=== PATIENT | male | born 1960 | race Caucasian/White ===

== ENCOUNTER 2016-10-09 | Outpatient (CLI) | END 2016-10-09 16:43 | disposition short-term general hospital (02) | CPT/HCPCS: A0425; A0427 ==

== ENCOUNTER 2016-10-09 15:41 | Emergency (ER) | payer OTHER ==
[2016-10-09] MEDS ORDERED: ASPIRIN CHEW 81 MG TABLET ONE (16:05)
[2016-10-09] MEDS ORDERED: HEPARIN 25,000 UNITS/500 ML 500 ML IV ONE (16:15)
[2016-10-09] MEDS ORDERED: NITROGLYCERIN SL 0.4 MG TABLET SL STA (16:16)
[2016-10-09] MEDS ORDERED: HEPARIN 25,000 UNITS/500 ML 500 ML IV STA (16:16)
[2016-10-09] MEDS ORDERED: CLOPIDOGREL 300 MG TABLET PO STA (16:16)
[2016-10-09] MEDS ORDERED: HEPARIN 5,000 UNIT/ML VIAL IVP STA (16:16)
[2016-10-09] MEDS ORDERED: LORazepam 2 MG/ML SYRINGE IVP STA (16:18)
[2016-10-09] MEDS ORDERED: MAGNESIUM SULFATE 2 GRAM 50 ML IV ONE ×2 (16:26→16:28)
[2016-10-09] MEDS ORDERED: AMIODARONE 150 MG/3 ML VIAL IVP STA (16:28)
[2016-10-09] MEDS ORDERED: AMIODARONE 360 MG/200 ML 200 ML IV ONE ×2 (16:29→16:32)
[2016-10-09] MEDS ORDERED: ASPIRIN CHEW 81 MG TABLET PO STA (16:49)
== END 2016-10-09 17:05 | disposition short-term general hospital (02) ==
DX: I21.01 ST elevation (STEMI) myocardial infarction involving left main coronary artery (principal); I49.01 Ventricular fibrillation; R07.2 Precordial pain
CPT/HCPCS: 36415; 80053; 83690; 84484; 85025; 85610; 85730; 93005; 93010; 96365; 96368; 96375; 96376; 99283; 99291; A9270; J0282

== ENCOUNTER 2016-10-26 18:14 | Emergency (ER) | payer OTHER | END 2016-10-26 19:21 | disposition home or self-care (01) | DX: B34.9 Viral infection, unspecified (principal) ==

== ENCOUNTER 2017-06-29 15:47 | Emergency (ER) | payer OTHER ==
[2017-06-29] MEDS ORDERED: PSEUDOEPHEDRINE 30 MG TABLET PO STA (16:43)
[2017-06-29] MEDS ORDERED: OXYMETAZOLINE NASAL SPRAY NAS STA (16:43)
[2017-06-29] MEDS ORDERED: OXYMETAZOLINE NASAL SPRAY NAS ONE (16:52)
[2017-06-29] MEDS ORDERED: PSEUDOEPHEDRINE 30 MG TABLET PO ONE (16:52)
--- NOTE | 2017-06-29 17:08 | ED Physician Documentation ---
History of Present Illness - Stated complaint Stated Complaint: SINUS PRESSURE - Chief complaint Chief Complaint: Heent - Additonal information Additional information: hx from pt 56 male to ER with L frontal and maxillary sinus pressure and a cough that is worse at night and is keeping his up no travel Review of Systems Constitutional: denies: Fever Nose: reports: Congestion, Sinus pressure / pain Respiratory: reports: Cough PD PAST MEDICAL HISTORY - Past Medical History Past Medical History: Yes Cardiovascular: [place] Respiratory: None Neuro: None Endocrine/Autoimmune: None GI: GERD - Past Surgical History Past Surgical History: Yes Cardiovascular: Coronary stent, Angioplasty - Present Medications Home Medications: Ambulatory Orders Medication Instructions Recorded Confirmed Atorvastatin [Lipitor] 40 mg ORAL DAILY 10/26/16 06/29/17 Clopidogrel [Plavix] 75 mg ORAL DAILY 10/26/16 06/29/17 Lisinopril 5 mg ORAL DAILY 10/26/16 06/29/17 Amox/Clav 875/125 [Augmentin] 1 each PO Q12H #20 tablet 06/29/17 Aspirin Chewable [St Quique 81 mg PO DAILY 06/29/17 06/29/17 Aspirin] Oxymetazoline HCl [Afrin] 2 spray NS BID PRN #1 bottle 06/29/17 Pantoprazole [Protonix] 40 mg PO DAILY 06/29/17 06/29/17 Pseudoephedrine [Sudafed] 30 mg PO Q6H PRN #12 tablet 06/29/17 - Allergies Allergies/Adverse Reactions: Allergies Allergy/AdvReac Type Severity Reaction Status Date / Time No Known Drug Allergies Allergy Verified 06/29/17 15:58 - Social History Does the pt smoke?: No Smoking Status: Never smoker Does the pt drink ETOH?: No Does the pt have substance abuse?: No - Immunizations Immunizations are current?: Yes PD ED PE NORMAL - Vitals Vital signs reviewed: Yes - HEENT HEENT: Ears normal, Moist mucous membranes, Pharynx benign, Other (L frontal and maxillary sinus TTP without swelling, nasal congestion) - Neck Neck: Supple, no meningeal sign - Cardiac Cardiac: RRR - Respiratory Respiratory: No respiratory distress, Clear bilaterally - Neuro Neuro: Alert and oriented X 3 Results - Vitals Vitals: Vital Signs - 24 hr 06/29/17 15:55 Temperature 36 C L Heart Rate 100 Respiratory 16 Rate Blood Pressure 114/80 O2 Saturation 93 Oxygen O2 Source Room air - Rads (name of study) CXR Radiology: See rad report (NACPD) Departure - Departure Disposition: 01 Home, Self Care Clinical Impression: Sinusitis Qualifiers: Sinusitis location: unspecified location Chronicity: acute Recurrence: non- recurrent Qualified Code(s): J01.90 - Acute sinusitis, unspecified Condition: Good Instructions: ED Sinusitis No Abx Follow-Up: Marko Hamlin ARNP [Primary Care Provider] - Prescriptions: Oxymetazoline HCl [Afrin] 2 spray NS BID PRN #1 bottle PRN Reason: nasal sinus ear congestion Amox/Clav 875/125 [Augmentin] 1 each PO Q12H #20 tablet Pseudoephedrine [Sudafed] 30 mg PO Q6H PRN #12 tablet PRN Reason: congestion Comments: The xray is fine - no pneumonia. Your cough is likely due to drainage from your sinuses at night Most sinus infections are not bacterial and do not need antibiotics. i recommend you take sudafed every 6 hr and use the afrin spray twice a day for three days. A sinus irrigation system such as a tabitha pot will help too. If you are not better after three days if trying that, then you can take the antibiotic
[2017-06-29 17:34] VITALS: BP 144/78
--- NOTE | 2017-06-29 17:55 | XRAY Preliminary Report ---
Exam: XR Chest 2 View PA/LAT IMPRESSION: Normal 2-view chest radiography. [facility] SITE ID: [id number]
--- NOTE | 2017-06-29 17:58 | XRAY Report ---
EXAM: CHEST RADIOGRAPHY EXAM DATE: 06/29/2017 05:07 PM. CLINICAL HISTORY: Productive cough x2 weeks. COMPARISON: None. TECHNIQUE: 2 views. FINDINGS: Lungs/Pleura: Normal volumes. No focal consolidation or evidence of edema. No pleural effusion or pne umothorax. Mediastinum: Normal cardiomediastinal contour. Other: The bones are unremarkable. IMPRESSION: Normal 2-view chest radiography. [facility] Referring Provider Line: [phone] SITE ID: [id number]
== END 2017-06-29 17:32 | disposition home or self-care (01) ==
LOC: ED 15:47
DX: J01.90 Acute sinusitis, unspecified (principal); I25.2 Old myocardial infarction; K21.9 Gastro-esophageal reflux disease without esophagitis; Z79.82 Long term (current) use of aspirin; Z79.02 Long term (current) use of antithrombotics/antiplatelets
CPT/HCPCS: 71020; 99283; A9270

== ENCOUNTER 2018-01-13 20:39 | Emergency (ER) | payer OTHER ==
[2018-01-13 21:03] LABS: BASOPHILS % (AUTO) 0.5 %; EOSINOPHILS # (AUTO) 0.1 10^3/uL (0.0-0.7); EOSINOPHILS % (AUTO) 0.7 %; HGB - HEMOGLOBIN 14.9 g/dL (14.0-18.0); LYMPHOCYTES # (AUTO) 2.6 10^3/uL (1.5-3.5); LYMPHOCYTES % (AUTO) 30.9 %; MEAN CORPUSCULAR HEMOGLOBIN 29.1 pg (27.0-31.0); MEAN CORPUSCULAR HGB CONC 33.4 g/dL (32.0-36.0); MEAN CORPUSCULAR VOLUME 87.1 fL (80.0-94.0); MEAN PLATELET VOLUME 8.3 fL (7.4-11.4); MONOCYTES # (AUTO) 0.7 10^3/uL (0.0-1.0); MONOCYTES % (AUTO) 8.3 %; NEUTROPHILS # (AUTO) 5.1 10^3/uL (1.5-6.6); NEUTROPHILS % (AUTO) 59.6 %; PLT - PLATELET COUNT 228 10^3/uL (130-450); RED BLOOD COUNT 5.13 10^6/uL (4.70-6.10); RED CELL DISTRIBUTION WIDTH 14.3 % (12.0-15.0); WHITE BLOOD COUNT 8.5 x10^3/uL (4.8-10.8)
[2018-01-13 21:14] LABS: ALBUMIN 4.7 g/dL (3.2-5.5); ALBUMIN/GLOBULIN RATIO 1.5 (1.0-2.2); BILIRUBIN,TOTAL 2.9 mg/dL (0.2-1.0); TOTAL PROTEIN 7.8 g/dL (6.7-8.2)
--- NOTE | 2018-01-13 22:25 | ED Physician Documentation ---
PD HPI CHEST PAIN - Stated complaint Stated Complaint: LEFT SIDE CHEST PX - Chief complaint Chief Complaint: Cardiac - History obtained from History obtained from: Patient - History of Present Illness Timing - onset: How many days ago (2) Timing - details: Intermittant Quality: Pressure, Aching Location: Left chest Worsened by: No: Exertion, Inspiration, Eating, Palpation Recently seen: Not recently seen - Additional information Additional information: Patient is a 57 year old male with a history of a prior CA about 1 year ago who is presenting to the emergency department for left sided chest pain. Patient states that it has been intermittent over the last few days. patient denies any shortness of breath with it and describes it as an ache. Patient denies any aggravating or alleviating factors or exertional component to his pain. Review of Systems Constitutional: denies: Fever, Chills Eyes: reports: Reviewed and negative Ears: reports: Reviewed and negative Nose: denies: Rhinorrhea / runny nose, Congestion Throat: denies: Sore throat Cardiac: reports: Chest pain / pressure. denies: Palpitations, Pedal edema, Calf pain Respiratory: denies: Dyspnea, Cough, Hemoptysis, Wheezing GI: denies: Nausea, Vomiting : reports: Reviewed and negative Skin: reports: Reviewed and negative Musculoskeletal: denies: Extremity pain Neurologic: denies: Generalized weakness, Focal weakness, Headache Immunocompromised: denies: Immunocompromised PD PAST MEDICAL HISTORY - Past Medical History Cardiovascular: [place] Respiratory: None Neuro: None Endocrine/Autoimmune: None GI: GERD - Past Surgical History Past Surgical History: Yes Cardiovascular: Coronary stent, Angioplasty - Present Medications Home Medications: Ambulatory Orders Medication Instructions Recorded Confirmed Atorvastatin [Lipitor] 40 mg ORAL DAILY 10/26/16 06/29/17 Clopidogrel [Plavix] 75 mg ORAL DAILY 10/26/16 06/29/17 Lisinopril 5 mg ORAL DAILY 10/26/16 06/29/17 Amox/Clav 875/125 [Augmentin] 1 each PO Q12H #20 tablet 06/29/17 Aspirin Chewable [St Quique 81 mg PO DAILY 06/29/17 06/29/17 Aspirin] Oxymetazoline HCl [Afrin] 2 spray NS BID PRN #1 bottle 06/29/17 Pantoprazole [Protonix] 40 mg PO DAILY 06/29/17 06/29/17 Pseudoephedrine [Sudafed] 30 mg PO Q6H PRN #12 tablet 06/29/17 - Allergies Allergies/Adverse Reactions: Allergies Allergy/AdvReac Type Severity Reaction Status Date / Time No Known Drug Allergies Allergy Verified 06/29/17 15:58 - Social History Does the pt smoke?: No Smoking Status: Never smoker Does the pt drink ETOH?: No Does the pt have substance abuse?: No - Immunizations Immunizations are current?: Yes PD ED PE NORMAL - Vitals Vital signs reviewed: Yes - General General: Alert and oriented X 3, No acute distress, Well developed/nourished - HEENT HEENT: Atraumatic, Moist mucous membranes - Neck Neck: No JVD - Cardiac Cardiac: RRR - Respiratory Respiratory: No respiratory distress, Clear bilaterally - Abdomen Abdomen: Soft, Non tender, Non distended - Derm Derm: Normal color - Extremities Extremities: No edema, No calf tenderness / cord - Neuro Neuro: Alert and oriented X 3 Eye Opening: Spontaneous Motor: Obeys Commands Verbal: Oriented GCS Score: 15 Results - Vitals Vitals: Vital Signs - 24 hr 01/13/18 01/13/18 20:40 22:31 Temperature 36.4 C L 36.8 C Heart Rate 82 69 Respiratory 18 18 Rate Blood Pressure 121/84 H 112/76 O2 Saturation 99 97 Oxygen O2 Source Room air - EKG (time done) 2046 Rate: Rate (enter#) (81) Rhythm: NSR Chapin: Normal Intervals: Normal PA QRS: Normal Ischemia: Normal ST segments - Labs Labs: Laboratory Tests 01/13/18 01/13/18 01/13/18 20:52 20:52 20:52 WBC 8.5 RBC 5.13 Hgb 14.9 Hct 44.7 MCV 87.1 MCH 29.1 MCHC 33.4 RDW 14.3 Plt Count 228 MPV 8.3 Neut # 5.1 Lymph # 2.6 Jefferson # 0.7 Eos # 0.1 Baso # 0.0 Absolute Nucleated RBC 0.01 Nucleated RBC % 0.1 Sodium 136 Potassium 3.4 L Chloride 101 Carbon Dioxide 28 Anion Gap 7.0 BUN 12 Creatinine 1.0 Estimated GFR (MDRD) 77 L Glucose 108 H Calcium 9.0 Total Bilirubin 2.9 H AST 44 H ALT 31 Alkaline Phosphatase 56 Troponin I < 0.04 Total Protein 7.8 Albumin 4.7 Globulin 3.1 Albumin/Globulin Ratio 1.5 Lipase 10 L PD MEDICAL DECISION MAKING - ED course Complexity details: reviewed old records, reviewed results, re-evaluated patient , considered differential, d/w patient ED course: Patient was seen and examined at bedside. patient was well appearing and in no distress. ekg was performed and was normal sinus. Patient's diagnostics were within normal limits including troponin. chest x-ray was offered but patient declined. Patient had a HEART score of 2. Patient required no further work up and was stable for discharge with outpatient follow up. Departure - Departure Disposition: 01 Home, Self Care Clinical Impression: Atypical chest pain, Chest pain Instructions: ED Chest Pain Atypical Unkn Cause Follow-Up: Marko Hamlin ARNP [Primary Care Provider] - Comments: Your diagnostics today were within normal limits. It is unlikely cardiac in nature but due to your history you should follow up with your doctor. You should follow up with your application software developer for a possible stress test. You may return to the emergency department at any time for new, worsening or uncontrollable symptoms. Discharge Date/Time: 01/13/18 22:33
[2018-01-13 22:32] VITALS: BP 112/76
== END 2018-01-13 22:33 | disposition home or self-care (01) ==
LOC: ED 20:39
DX: R07.89 Other chest pain (principal); I25.2 Old myocardial infarction; Z95.5 Presence of coronary angioplasty implant and graft; Z79.82 Long term (current) use of aspirin
CPT/HCPCS: 36415; 80053; 83690; 84484; 85025; 93005; 99283; 99284

== ENCOUNTER 2019-12-31 19:52 | Emergency (ER) | payer OTHER ==
[2019-12-31] MEDS ORDERED: cephALEXin 250 MG CAPSULE PO STA (20:25)
[2019-12-31] MEDS ORDERED: TETANUS/DIPHTHERIA/PERTUSSIS 0.5 ML SYRINGE IM ONE (20:25)
--- NOTE | 2019-12-31 20:28 | ED Physician Documentation ---
History of Present Illness - Stated complaint Stated Complaint: RT HAND SWELLING - Chief complaint Chief Complaint: Wound - History obtained from History obtained from: Patient - History of Present Illness Timing: How many weeks ago (2) Pain level max: 2 Pain level now: 1 - Additonal information Additional information: Patient is a 59-year-old male who presents the emergency department with redness and swelling to the dorsum of the right hand. He states that he injured this approximately 2 weeks ago While trimming trees. States increasing redness and swelling since that time. No fevers. Worse with movement and better with rest. Unknown last tetanus. He is right-handed Review of Systems Constitutional: denies: Fever, Chills GI: denies: Vomiting, Diarrhea Skin: denies: Rash Musculoskeletal: denies: Neck pain, Back pain Neurologic: denies: Headache PD PAST MEDICAL HISTORY - Past Medical History Past Medical History: Yes Cardiovascular: [place] Respiratory: None Endocrine/Autoimmune: None GI: GERD - Past Surgical History Past Surgical History: Yes Cardiovascular: Coronary stent, Angioplasty - Present Medications Home Medications: Ambulatory Orders Medication Instructions Recorded Confirmed Atorvastatin [Lipitor] 40 mg ORAL DAILY 10/26/16 12/31/19 Clopidogrel [Plavix] 75 mg ORAL DAILY 10/26/16 12/31/19 lisinopriL [Lisinopril] 5 mg ORAL DAILY 10/26/16 12/31/19 Aspirin Chewable [St Quique 81 mg PO DAILY 06/29/17 12/31/19 Aspirin] Oxymetazoline HCl [Afrin] 2 spray NS BID PRN #1 bottle 06/29/17 12/31/19 Pantoprazole [Protonix] 40 mg PO DAILY 06/29/17 12/31/19 Pseudoephedrine [Sudafed] 30 mg PO Q6H PRN #12 tablet 06/29/17 12/31/19 Cephalexin [Keflex] 500 mg PO Q6H #28 capsule 12/31/19 - Allergies Allergies/Adverse Reactions: Allergies Allergy/AdvReac Type Severity Reaction Status Date / Time No Known Drug Allergies Allergy Verified 12/31/19 19:55 - Social History Does the pt smoke?: No Smoking Status: Never smoker Does the pt drink ETOH?: No Does the pt have substance abuse?: No - Immunizations Immunizations are current?: Yes - POLST Patient has POLST: No PD ED PE NORMAL - Vitals Vital signs reviewed: Yes - General General: Alert and oriented X 3, No acute distress - HEENT HEENT: Moist mucous membranes - Derm Derm: Warm and dry - Extremities Extremities: Other (Mild swelling, erythema and warmth to the dorsum of the right hand. No evidence of deep space infection. Full range of motion. No palmar tenderness. No erythematous streaking. Neurovascular intact.) - Neuro Neuro: Alert and oriented X 3 Results - Vitals Vitals: Vital Signs - 24 hr 12/31/19 19:55 Temperature 36.5 C Heart Rate 76 Respiratory 14 Rate Blood Pressure 135/88 H O2 Saturation 96 Oxygen O2 Source Room air PD MEDICAL DECISION MAKING - ED course Complexity details: considered differential, d/w patient ED course: Patient with cellulitis of the right hand. Will place on Keflex. Tetanus updated. Warnings of infection and instructions on wound care given at bedside. Also counseled on how to minimize scarring. Patient counseled regarding signs and symptoms for which I believe and urgent re-evaluation would be necessary. Patient with good understanding of and agreement to plan and is comfortable going home at this time This document was made in part using voice recognition software. While efforts are made to proofread this document, sound alike and grammatical errors may occur. Departure - Departure Disposition: 01 Home, Self Care Clinical Impression: Cellulitis of right hand Condition: Good Instructions: ED Infec Skin Cellulitis Follow-Up: Marko Hamlin ARNP [Primary Care Provider] - Within 1 week Prescriptions: Cephalexin [Keflex] 500 mg PO Q6H #28 capsule Comments: Take all antibiotics until gone. Return if you worsen. Follow-up with your doctor in 3 to 4 days for a wound check. The swelling and redness should be going down within the next 24 to 48 hours.
[2019-12-31 21:26] VITALS: BP 117/87
== END 2019-12-31 20:55 | disposition home or self-care (01) ==
LOC: ED 19:52
DX: L03.113 Cellulitis of right upper limb (principal)
CPT/HCPCS: 90471; 90715; 99283; 99284; A9270

== ENCOUNTER 2021-09-17 11:29 | Emergency (ER) | payer OTHER ==
[2021-09-17 12:07] VITALS: BP 133/96
--- NOTE | 2021-09-17 12:35 | XRAY Report ---
PROCEDURE: Chest 1 View X-Ray INDICATIONS: chest pain TECHNIQUE: One view of the chest was acquired. COMPARISON: None FINDINGS: Surgical changes and devices: None. Lungs and pleura: No pleural effusions or pneumothorax. Lungs are clear. Mediastinum: Mediastinal contours appear normal. Heart size is normal. Bones and chest wall: No suspicious bony lesions. Overlying soft tissues appear unremarkable. IMPRESSION: No acute cardiopulmonary findings Reviewed by: Marco Antonio Macedo MD on 09/17/2021 11:33 AM [facility] [email or web address]] Approved by: Marco Antonio Macedo MD on 09/17/2021 11:33 AM [facility] [[email or web address]] Station ID: [id number]
--- NOTE | 2021-09-17 12:40 | ED Physician Documentation ---
History of Present Illness - Stated complaint Stated Complaint: C+ CONGESTION - Chief complaint Chief Complaint: Resp - Additonal information Additional information: 60-year-old male presents emergency department for evaluation of cough sinus congestion in the setting of COVID-19 infection. He is not vaccinated for COVID-19. He is not interested in monoclonal antibodies however. His biggest concern is that of sinus congestion. He has been taking Sudafed with little relief. Denies any fevers since the infection began. No chest pain no dyspnea no hemoptysis. Review of Systems Constitutional: denies: Chills, Myalgias Eyes: reports: Reviewed and negative Ears: reports: Reviewed and negative Nose: reports: Rhinorrhea / runny nose, Congestion Throat: reports: Reviewed and negative Cardiac: reports: Reviewed and negative Respiratory: denies: Dyspnea, Cough, Hemoptysis, Wheezing GI: reports: Reviewed and negative : denies: Dysuria, Frequency, Hesitancy Skin: reports: Reviewed and negative Musculoskeletal: reports: Reviewed and negative PD PAST MEDICAL HISTORY - Past Medical History Cardiovascular: [place] Respiratory: None Endocrine/Autoimmune: None GI: GERD - Past Surgical History Past Surgical History: Yes Cardiovascular: Coronary stent, Angioplasty - Present Medications Home Medications: Ambulatory Orders Medication Instructions Recorded Confirmed Atorvastatin [Lipitor] 40 mg ORAL DAILY 10/26/16 12/31/19 Clopidogrel [Plavix] 75 mg ORAL DAILY 10/26/16 12/31/19 lisinopriL [Lisinopril] 5 mg ORAL DAILY 10/26/16 12/31/19 Aspirin Chewable [St Quique 81 mg PO DAILY 06/29/17 12/31/19 Aspirin] Oxymetazoline HCl [Afrin] 2 spray NS BID PRN #1 bottle 06/29/17 12/31/19 Pantoprazole [Protonix] 40 mg PO DAILY 06/29/17 12/31/19 Pseudoephedrine [Sudafed] 30 mg PO Q6H PRN #12 tablet 06/29/17 12/31/19 cephALEXin [Keflex] 500 mg PO Q6H #28 capsule 12/31/19 - Allergies Allergies/Adverse Reactions: Allergies Allergy/AdvReac Type Severity Reaction Status Date / Time No Known Drug Allergies Allergy Verified 09/17/21 11:50 - Social History Does the pt smoke?: No Smoking Status: Never smoker Does the pt drink ETOH?: No Does the pt have substance abuse?: No - Immunizations Immunizations are current?: Yes - POLST Patient has POLST: No PD ED PE NORMAL - General General: Alert and oriented X 3, No acute distress, Well developed/nourished - HEENT HEENT: PERRL - Neck Neck: Supple, no meningeal sign - Cardiac Cardiac: RRR, No murmur - Respiratory Respiratory: Clear bilaterally - Abdomen Abdomen: Normal bowel sounds, Non tender, Non distended - Back Back: No CVA TTP, No spinal TTP - Derm Derm: Warm and dry - Extremities Extremities: No deformity - Neuro Neuro: Alert and oriented X 3 Eye Opening: Spontaneous Motor: Obeys Commands Verbal: Oriented GCS Score: 15 Results - Vitals Vitals: Vital Signs - 24 hr 09/17/21 12:06 Temperature 36.8 C Heart Rate 100 Respiratory 16 Rate Blood Pressure 133/96 H O2 Saturation 96 Oxygen O2 Source Room air - Rads (name of study) cxr Radiology: Final report received (no acute cardiopulmonary process) PD MEDICAL DECISION MAKING - ED course Complexity details: reviewed results, re-evaluated patient, considered differential, d/w patient ED course: 60-year-old male who carries a medical history most significant for coronary artery disease presents the emergency department for evaluation of his COVID-19 symptoms as well as sinus congestion. He tested positive about 6 days ago. This was the same day that he began having some mild cough congestion and dyspnea. He reports that the first 3 to 4 days of the infection he had intense myalgias and fatigue though it has improved. He is concerned because last night he noted that his oxygen saturations dropped to 92%. He is also having a lot of nasal congestion. He is not vaccinated. We did discuss the possibility of Mab therapy and though he would be a candidate he declines it today. Chest x-ray is without any focal abnormality. Oxygen levels are normal and his cardiopulmonary auscultation was unremarkable. He is advised to use saline nasal spray as well as Flonase for the nasal congestion. Emergent worrisome return precautions were discussed. This gentleman was encouraged to get vaccinated for COVID-19. Departure - Departure Disposition: 01 Home, Self Care Clinical Impression: COVID-19, Sinus congestion Condition: Stable Record reviewed to determine appropriate education?: Yes Comments: Anthony cornejo are seen in the emergency department today for concerns of sinus congestion and COVID-19 infection. We will call you if the Covid test from today is positive. If it remains positive you will need to continue to quarantine. Your chest x-ray is normal and does not show any signs of pneumonia. Your vital signs here have also been normal. Your oxygen levels were 96%. In general we recommend those that have COVID-19 infection to try and sleep on their stomach. This can help improve the aeration of the lungs at nighttime. Most people will have maximal Covid symptoms around 7 to 10 days. I suggest you rinse your nose once or twice daily with saline nasal rinse and then use Flonase nasal spray. This will help with congestion. Those that have a history of coronary artery disease or coronary stenting should avoid products conceding pseudoephedrine like Sudafed. If at any point you have severe shortness of air, have oxygen levels less than 90%, or feel that your symptoms are worsening then please return to the ER for second evaluation.
[2021-09-17 12:46] LABS: BASOPHILS % (AUTO) 0.4 %; EOSINOPHILS % (AUTO) 0.2 %; HGB - HEMOGLOBIN 16.1 g/dL (14.0-18.0); LYMPHOCYTES # (AUTO) 1.4 10^3/uL (1.5-3.5); LYMPHOCYTES % (AUTO) 28.1 %; MEAN CORPUSCULAR HEMOGLOBIN 29.2 pg (27.0-31.0); MEAN CORPUSCULAR HGB CONC 33.5 g/dL (32.0-36.0); MEAN CORPUSCULAR VOLUME 87.1 fL (80.0-94.0); MEAN PLATELET VOLUME 10.2 fL (7.4-11.4); MONOCYTES # (AUTO) 0.6 10^3/uL (0.0-1.0); MONOCYTES % (AUTO) 12.6 %; NEUTROPHILS # (AUTO) 2.9 10^3/uL (1.5-6.6); NEUTROPHILS % (AUTO) 57.9 %; PLT - PLATELET COUNT 179 10^3/uL (130-450); RED BLOOD COUNT 5.51 10^6/uL (4.70-6.10); RED CELL DISTRIBUTION WIDTH 13.2 % (12.0-15.0)
[2021-09-17 12:56] LABS: ALBUMIN 3.8 g/dL (3.2-5.5); BILIRUBIN,TOTAL 1.6 mg/dL (0.2-1.0); POTASSIUM 4.1 mmol/L (3.5-5.0); TOTAL PROTEIN 7.7 g/dL (6.7-8.2)
[2021-09-17 13:22] LABS: B. PARAPERTUSSIS- RESP PCR PAN NOT DETECTED; B. PERTUSSIS- RESP PCR PANEL NOT DETECTED; C. PNEUMONIAE- RESP PCR PANEL NOT DETECTED; CORONAVIRUS 229E-RESP PCR NOT DETECTED; CORONAVIRUS HKU1-RESP PCR NOT DETECTED; CORONAVIRUS NL63-RESP PCR NOT DETECTED; CORONAVIRUS OC43-RESP PCR NOT DETECTED; HUMAN METAPNEUMOVIRUS NOT DETECTED; INFLUENZA A- RESP PCR PANEL NOT DETECTED; INFLUENZA B - RESP PCR PANEL NOT DETECTED; M. PNEUMONIAE- RESP PCR PANEL NOT DETECTED; PARAINFLUENZA VIRUS 1 NOT DETECTED; PARAINFLUENZA VIRUS 2 NOT DETECTED; PARAINFLUENZA VIRUS 3 NOT DETECTED; PARAINFLUENZA VIRUS 4 NOT DETECTED; RHINOVIRUS/ENTEROVIRUS NOT DETECTED; RSV- RESP PCR PANEL NOT DETECTED; SARS-CoV-2 -RESP PCR PANEL DETECTED
== END 2021-09-17 14:05 | disposition home or self-care (01) ==
LOC: ED 11:29
DX: U07.1 COVID-19 (principal); R09.81 Nasal congestion; Z95.5 Presence of coronary angioplasty implant and graft
CPT/HCPCS: 0202U; 36415; 71045; 80053; 83690; 85025; 99283; 99284